=== PATIENT | male | born 1945 | race Caucasian/White ===

== ENCOUNTER 2016-05-02 14:25 | Emergency (ER) | payer OTHER, MEDICARE ==
[~2016-05-02] VITALS: Ht 182.9 cm; Wt 113.4 kg
[~2016-05-02 14:25] MED LIST: AMOXICILLIN500 M1 PO; VICODIN5-300 PO
--- NOTE | 2016-05-02 14:57 | ED DYSPNEA/ASTHMA COMPLAINT ---
History of Present Illness General Chief Complaint: Dyspnea (COPD, CHF, Other) Stated Complaint: URI/SOB Source: patient, family Exam Limitations: no limitations Vital Signs & Intake/Output Vital Signs & Intake/Output Vital Signs Date Time Temp Pulse Resp B/P Pulse O2 O2 Flow FiO2 Ox Delivery Rate 05/02 1826 97.2 75 18 152/78 93 Room Air 05/02 1624 82 18 141/66 91 Nasal Cannula 05/02 1519 95 Nasal 2.0L Cannula 05/02 1518 95 Nasal 2.0L Cannula 05/02 1435 96.6 64 18 158/89 94 Room Air Allergies Coded Allergies: Iodinated Contrast Media - Oral and (Severe, BLACKED OUT 05/02/16) Uncoded Allergies: SEAFOOD (RASH 05/02/16) Reconcile Medications Albuterol Sulfate (Proair Hfa) 90 MCG HFA.AER.AD 2 PUF INH Q4-6 PRN PRN DYSPNEA Cyanocobalamin (Vitamin B-12) 1,000 MCG TABLET 1 TAB PO DAILY SUPPLEMENT ( Reported) Ezetimibe/Simvastatin (Vytorin 10-40 MG Tablet) 10 MG-40 MG TABLET 1 TAB PO DAILY HEART (Reported) Finasteride 5 MG TABLET 1 TAB PO DAILY HEART (Reported) Levofloxacin (Levaquin) 500 MG TABLET 1 TAB PO DAILY PNEUMONIA Levothyroxine Sodium 50 MCG TABLET 1 TAB PO DAILY AC THYROID (Reported) Metformin HCl 1,000 MG TABLET 1 TAB PO DAILY DIABETES (Reported) Methylprednisolone. (Medrol) 4 MG TAB.DS.PK 1 DP PO AD INFLAMMATION 6 on day 1 then reduce by one tablet daily until gone Metoprolol Succinate 25 MG TAB 0.5 TAB PO DAILY HEART (Reported) Perley-3 Acid Ethyl Esters 1 GRAM CAPSULE 1 CAP PO BID SUPPLEMENT (Reported) Sitagliptin Phosphate (Januvia) 100 MG TABLET 1 TAB PO DAILY DIABETES ( Reported) Tamsulosin HCl 0.4 MG CAP.ER.24H 1 CAP PO DAILY PROSTATE (Reported) Valsartan 80 MG TABLET 1 TAB PO DAILY HEART (Reported) Vitamin E Acetate (Vitamin E) 400 UNIT CAPSULE 1 CAP PO DAILY SUPPLEMENT ( Reported) Triage Note: 70 Y/O MALE C/O NOT FEELING WELL SINCE THURSDAY; C/O COUGH, SOB AND DECREASED APPETITE. PT WAS EVAL'D AT DR QUACH'S OFFICE TODAY FOR REGULAR APPT AND WAS ADVISED TO COME TO ED FOR CHEST XRAY AND LABS. HAS COPY OF EKG (FROM TODAY). CONGESTED COUGH NOTED. AFEBRILE. Triage Nurses Notes Reviewed? yes Onset: Gradual Duration: day(s): (6) Timing: recent history Severity: moderate Activities at Onset: none Associated Symptoms: cough, shortness of breath HPI: This is a 70 year old male who presents to the ER with chief complaint of shortness of breath for the past several days. He was sent here from his doctor 's office for reported hypoxia. Denies any chest pain. Past History Travel History Traveled to [place] past 21 day No Medical History Any Pertinent Medical History? 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 No Review of Systems Review of Systems Constitutional: Reports: chills, fever, malaise, weakness. EENTM: Reports: no symptoms. Respiratory: Reports: cough, short of breath. Denies: sputum production. Cardiovascular: Denies: chest pain, palpitations. GI: Reports: nausea. Denies: bloating, vomiting. Genitourinary: Reports: no symptoms. Musculoskeletal: Reports: no symptoms. Skin: Reports: no symptoms. Neurological/Psychological: Reports: no symptoms. Hematologic/Endocrine: Denies: bruising, bleeding. Immunologic/Allergic: Reports: no symptoms. All Other Systems: Reviewed and Negative Physical Exam Physical Exam General Appearance: well developed/nourished, alert, awake, mild distress Head: atraumatic, normal appearance Eyes: Bilateral: normal appearance, PERRL, EOMI. Ears, Nose, Throat: normal pharynx, normal ENT inspection, hearing grossly normal Neck: normal inspection, supple, full range of motion Respiratory: chest non-tender, decreased breath sounds, wheezing, respiratory distress Cardiovascular: regular rate/rhythm Peripheral Pulses: 2+ radial (R), 2+ radial (L) Gastrointestinal: normal bowel sounds, soft, non-tender Extremities: normal inspection, normal capillary refill, normal range of motion, no edema Neurologic/Psych: no motor/sensory deficits, awake, alert, oriented x 3 Skin: intact Core Measures ACS in differential dx? No Severe Sepsis Present: No Septic Shock Present: No Progress Differential Diagnosis: asthma, bronchitis, CHF, COPD, pulmonary embolism, pneumonia, pneumothorax Plan of Care: Orders Procedure Date/time Status Add-on Test (ER Only) 05/02 1743 Active EKG 05/02 1546 Active COMPREHENSIVE METABOLIC PANEL 05/02 1543 Complete BLOOD CULTURE 05/02 1503 Active LACTIC ACID 05/02 1503 Complete CBC WITHOUT DIFFERENTIAL 05/02 1503 Complete RT ED ORDERS 05/02 1502 Active RAPID VIRAL INFLUENZA A 05/02 1502 Complete Laboratory Tests 05/02/16 1803: Lactic Acid Cancelled 05/02/16 1543: Anion Gap 14, Estimated GFR > 60, BUN/Creatinine Ratio 16.7, Glucose 183 H, Lactic Acid 2.1, Calcium 8.8, Total Bilirubin 0.6, AST 41, ALT 56, Alkaline Phosphatase 89, Total Protein 7.2, Albumin 4.4, Globulin 2.8, Albumin/Globulin Ratio 1.6, CBC w Diff NO MAN DIFF REQ, RBC 5.09, MCV 86.4, MCH 29.0, RDW 13.6, MPV 8.9, Gran % 66.7, Lymphocytes % 22.1, Monocytes % 10.6 H, Eosinophils % 0.3 , Basophils % 0.3, Absolute Granulocytes 3.9, Absolute Lymphocytes 1.3, Absolute Monocytes 0.6, Absolute Eosinophils 0, Absolute Basophils 0, PUBS MCHC 33.6 Microbiology 05/02 1602 BLOOD: Blood Culture - RECD 05/02 1543 BLOOD: Blood Culture - RECD duoneb, cxr, labs ordered. labs, influenza swab ordered. patient feeling better after duoneb, improved aeration, diminished wheezing. PREDNISONE 60 MG GIVEN. Ambulatory without distress. Saturation 93-95% with ambulation. Patient requesting to go home. (ALEC LO,GRIS) Diagnostic Imaging: Viewed by Me: Radiology Read. Discussed w/RAD: Radiology Read. CXR Impression: PATIENT: CONRAD BELCHER PRESENT AGE: 70 PATIENT ACCOUNT NO: [id number] : 43 LOCATION: [facility] ORDERING PHYSICIAN: GRIS MICHAEL MD SERVICE DATE: 05/02/16-9616 EXAM TYPE: RAD - XRY -CHEST XRAY, PA AND LATERAL EXAMINATION: XR CHEST CLINICAL INFORMATION: Cough and hypoxia. Assess for pneumonia. COMPARISON: Chest x-ray 01/28/2016. TECHNIQUE : AP and lateral views of the chest were obtained. FINDINGS: The lung shook are well expanded and appear clear bilaterally. The cardiac silhouette is prominent but stable. There are no pleural effusions or pneumothorax. The central pulmonary vasculature is normal. The hilar regions appear normal. There are sequelae of prior median sternotomy and CABG. There are no acute osseous findings. IMPRESSION: 1. There are no acute cardiopulmonary findings. 2. Stable postoperative changes with sequelae of median sternotomy and CABG. DICTATED BY: AMY DARNELL MD DATE/TIME DICTATED:05/02/161657 CAN CLOSING MACHINE OPERATOR:NICHOLAS DATE/TIME TRANSCRIBED:05/02/161657 CONFIDENTIAL, DO NOT COPY WITHOUT APPROPRIATE AUTHORIZATION. <Electronically signed in Other Vendor System> SIGNED BY: AMY DARNELL MD 05/02/16 1703 Initial ED EKG: NSR, PREMATURE VENTRICULAR CONTRACTION, INTERVENTRICULAR CONDUCTION DELAY, Departure Departure Time of Disposition: 1830 Disposition: HOME OR SELF CARE Condition: Stable Clinical Impression Primary Impression: Bronchitis Referrals: PARMINDER LO,ANDREW Shore (PCP/Family) Additional Instructions: Take the prednisone, Levaquin and use albuterol inhaler as directed. Please follow up with her doctor in the office. Return to the ER for any changing or worsening symptoms. Departure Forms: Customer Survey General Discharge Information Prescriptions: Current Visit Scripts Levofloxacin (Levaquin) 1 TAB PO DAILY #7 TAB Methylprednisolone. (Medrol) 1 DP PO AD #1 DP 6 on day 1 then reduce by one tablet daily until gone Albuterol Sulfate (Proair Hfa) 2 PUF INH Q4-6 PRN PRN DYSPNEA #1 INHAL Critical Care Note Critical Care Note Critical Care Time: non-applicable
[2016-05-02] MEDS ORDERED: FINASTERIDE5 M1 PO (15:24)
[2016-05-02] MEDS ORDERED: METFORMIN HCL1000 M1 PO (15:25)
[2016-05-02] MEDS ORDERED: METOPROLOL SUCC25 M1 PO (15:25)
[2016-05-02] MEDS ORDERED: LEVOTHYROXINE50 MCG PO (15:25)
[2016-05-02] MEDS ORDERED: TAMSULOSIN HCL0.4 M1 PO (15:26)
[2016-05-02] MEDS ORDERED: OMEGA-3 ACID ETH1 GM PO (15:26)
[2016-05-02] MEDS ORDERED: JANUVIA100 M1 PO (15:26)
[2016-05-02] MEDS ORDERED: VITAMIN B-121000 MC3 PO (15:27)
[2016-05-02] MEDS ORDERED: VALSARTAN80 M1 PO (15:27)
[2016-05-02] MEDS ORDERED: VITAMIN E400 UNI4 PO (15:28)
[2016-05-02] MEDS ORDERED: VYTORIN 10-401 EACH PO (15:28)
[2016-05-02 16:00] LABS: ABSOLUTE BASOPHIL COUNT 0 /CUMM (0.0-0.2); ABSOLUTE EOSINOPHIL COUNT 0 /CUMM (0.0-0.7); ABSOLUTE GRANULOCYTE CT 3.9 /CUMM (1.4-6.5); ABSOLUTE LYMPH COUNT 1.3 /CUMM (1.2-3.4); ABSOLUTE MONOCYTE COUNT 0.6 /CUMM (0.10-0.60); BASOPHIL % 0.3 % (0.0-2.0); EOSINOPHIL % 0.3 % (0-5); GRANULOCYTE % 66.7 % (42.2-75.2); MEAN CORPUSCULAR HGB CONC 33.6 G/DL (33.0-37.0); MEAN CORPUSCULAR VOLUME 86.4 FL (80.0-94.0); MEAN PLATELET VOLUME 8.9 FL (7.4-10.4); PLATELET COUNT 185 /CUMM (130-400); RBC DISTRIBUTION WIDTH 13.6 % (11.5-14.5); RED BLOOD CELL CT 5.09 /CUMM (4.70-6.10); WHITE BLOOD CELL COUNT 5.8 /CUMM (4.8-10.8)
--- NOTE | 2016-05-02 17:03 | RADIOLOGY REPORT ---
EXAMINATION: XR CHEST CLINICAL INFORMATION: Cough and hypoxia. Assess for pneumonia. COMPARISON: Chest x-ray 01/28/2016. TECHNIQUE: AP and lateral views of the chest were obtained. FINDINGS: The lung shook are well expanded and appear clear bilaterally. The cardiac silhouette is prominent but stable. There are no pleural effusions or pneumothorax. The central pulmonary vasculature is normal. The hilar regions appear normal. There are sequelae of prior median sternotomy and CABG. There are no acute osseous findings. IMPRESSION: 1. There are no acute cardiopulmonary findings. 2. Stable postoperative changes with sequelae of median sternotomy and CABG.
[2016-05-02 18:26] VITALS: BP 152/78
[2016-05-02] MEDS ORDERED: LEVAQUIN500 M1 PO (18:30)
[2016-05-02] MEDS ORDERED: MEDROL4 M2 PO (18:30)
[2016-05-02] MEDS ORDERED: PROAIR HFA8.5 GM INH (18:30)
== END 2016-05-02 18:36 ==
LOC: ERH 14:25
PROVIDERS: Emergency Medicine
DX: J40 Bronchitis, not specified as acute or chronic (principal); I10 Essential (primary) hypertension; E11.9 Type 2 diabetes mellitus without complications; Z79.84 Long term (current) use of oral hypoglycemic drugs
CPT/HCPCS: 1263; 87040; 87804; 87804-59; 93005; 93010